=== PATIENT | female | born 1955 | race African-American/Black ===

== ENCOUNTER 2024-05-07 13:50 | Inpatient (IN) | payer MEDICARE, MEDICAID ==
[~2024-05-07] VITALS: Ht 180.3 cm; Wt 98.7 kg
[~2024-05-07 13:50] MED LIST: DILT60TA3 PO; HYDR50TA36 PO; LABE100T51 PO; SODI650T33 PO
[2024-05-07 15:26] LABS: BASOPHILS % (AUTO) 0.7 % (0.0-2.0); EOSINOPHILS % (AUTO) 1.7 % (1.0-6.0); HEMATOCRIT 28.3 % (36-46); HEMOGLOBIN 8.9 g/dL (12.0-16.0); LYMPHOCYTES % (AUTO) 36.8 % (22.0-44.0); MEAN CORPUSCULAR HEMOGLOBIN 29.1 pg (26.0-34.0); MEAN CORPUSCULAR HGB CONC 31.5 G/dL (31.0-37.0); MEAN CORPUSCULAR VOLUME 92 fL (80-100); MONOCYTES # (AUTO) 0.7 K/uL (0.1-1.0); MONOCYTES % (AUTO) 9.3 % (2.0-9.0); NEUTROPHILS # (AUTO) 4.1 K/uL (1.8-7.7); NEUTROPHILS % (AUTO) 51.5 % (40.0-70.0); PLATELET COUNT (AUTO) 240 K/uL (150-450); RED BLOOD CELL COUNT(AUTO) 3.06 MIL/uL (4.00-5.20); RED CELL DISTRIBUTION WIDTH 14.6 % (11.5-14.5)
[2024-05-07 15:35] LABS: CALCIUM, TOTAL 7.9 mg/dL (8.8-10.5); CREATININE 5.26 mg/dL (0.60-1.30); POTASSIUM 5.3 mmol/L (3.5-5.1)
[2024-05-07 15:43] LABS: TROPONIN I-HIGH SENSITIVITY 6 ng/L (<51)
[2024-05-07 16:14] LABS: APPEARANCE,URINE CLEAR (CLEAR); BILIRUBIN,URINE NEGATIVE (NEGATIVE); COLOR,URINE LIGHT YELLOW (YELLOW); GLUCOSE, URINE (UA) NEGATIVE (NEGATIVE); KETONES,URINE NEGATIVE (NEGATIVE); LEUKOCYTE ESTERASE ,URINE NEGATIVE (NEGATIVE); NITRATE,URINE NEGATIVE (NEGATIVE); OCCULT BLOOD,URINE NEGATIVE (NEGATIVE); PH,URINE 5.5 (5.0-8.0); PROTEIN,URINE 30-70 mg/dL (NEGATIVE); SPECIFIC GRAVITIY, URINE 1.013 (1.003-1.030); UROBILINOGEN,URINE <=1.0 mg/dL (<=1.0)
[2024-05-07] MEDS: ACETAMINOPHEN 325 MG TABLET PO ONE (17:25)
[2024-05-07] MEDS ORDERED: ACETAMINOPHEN 325 MG TABLET PO PRN (20:30)
[2024-05-07] MEDS ORDERED: ONDANSETRON HCL 4 MG/2 ML VIAL IVP PRN (20:30)
[2024-05-07] MEDS ORDERED: MAGNESIUM HYDROXIDE SUSPENSION 30 ML UDCUP PO PRN (20:30)
[2024-05-07] MEDS ORDERED: BISACODYL 10 MG RECTAL RECTAL SUPPOSITORY PR PRN (20:30)
[2024-05-07] MEDS: DILTIAZEM HCL 60 MG SR CAPSULE PO SCH (20:50)
[2024-05-07] MEDS: LABETALOL HCL 100 MG TABLET PO SCH (20:50)
[2024-05-07] MEDS: HydrALAZINE HCL 50 MG TABLET PO SCH (20:50)
[2024-05-07] MEDS: DOCUSATE SODIUM 100 MG CAPSULE PO SCH (20:53)
[2024-05-07] MEDS: SODIUM CHLORIDE 0.9% 1,000 ML IV ONE (20:53)
[2024-05-07] MEDS: SODIUM POLYSTYRENE SULFONATE 15 GM/60 ML SUSPENSION BOTTLE PO ONE (20:53)
[2024-05-07] MEDS: OxyCODONE HCL/ACETAMINOPHEN 10-325 MG TABLET PO ONE (20:55)
[2024-05-07 22:19] VITALS: BP 165/75; PULSE 93; RESP 18; TEMP 98.5; O2SAT 97
[2024-05-07] MEDS: ZOLPIDEM TARTRATE 5 MG TABLET PO PRN (23:27)
[2024-05-07] MEDS: HydrALAZINE HCL 20 MG/ML VIAL IVP PRN (23:28)
[2024-05-07] MEDS: HEPARIN SODIUM,PORCINE 5,000 UNITS/ML VIAL SQ SCH (23:28)
[2024-05-07] MEDS: OxyCODONE HCL/ACETAMINOPHEN 5-325 MG TABLET PO PRN (23:28)
[2024-05-08] VITALS (7 sets, daily range): BP systolic 142–173; BP diastolic 64–84; PULSE 100–109; RESP 15–18; TEMP 98–99; O2SAT 95–100
[2024-05-08] MEDS: SODIUM BICARBONATE 650 MG TABLET PO SCH ×2 (08:03→20:51)
[2024-05-08] MEDS: PANTOPRAZOLE SODIUM 40 MG DR TABLET PO SCH (08:03)
[2024-05-08 08:22] LABS: BASOPHILS % (AUTO) 0.6 % (0.0-2.0); EOSINOPHILS % (AUTO) 2.1 % (1.0-6.0); HEMATOCRIT 30.1 % (36-46); HEMOGLOBIN 9.6 g/dL (12.0-16.0); LYMPHOCYTES # (AUTO) 2.5 K/uL (1.0-4.8); LYMPHOCYTES % (AUTO) 31.7 % (22.0-44.0); MEAN CORPUSCULAR HEMOGLOBIN 29.4 pg (26.0-34.0); MEAN CORPUSCULAR HGB CONC 31.9 G/dL (31.0-37.0); MEAN CORPUSCULAR VOLUME 92 fL (80-100); MONOCYTES # (AUTO) 0.9 K/uL (0.1-1.0); NEUTROPHILS # (AUTO) 4.2 K/uL (1.8-7.7); NEUTROPHILS % (AUTO) 54.6 % (40.0-70.0); PLATELET COUNT (AUTO) 266 K/uL (150-450); RED BLOOD CELL COUNT(AUTO) 3.27 MIL/uL (4.00-5.20); RED CELL DISTRIBUTION WIDTH 14.8 % (11.5-14.5); WHITE BLOOD COUNT (AUTO) 7.7 K/uL (4.5-11.0)
[2024-05-08 08:43] LABS: CALCIUM, TOTAL 7.9 mg/dL (8.8-10.5); CREATININE 4.9 mg/dL (0.60-1.30); POTASSIUM 4.7 mmol/L (3.5-5.1)
[2024-05-08] MEDS: SODIUM CHLORIDE 0.9% 1,000 ML IV ONE (15:08)
[2024-05-09 05:05] VITALS: BP 158/62; PULSE 101; RESP 19; TEMP 98.7; O2SAT 96
[2024-05-09 07:18] LABS: BASOPHILS % (AUTO) 0.6 % (0.0-2.0); EOSINOPHILS % (AUTO) 0.8 % (1.0-6.0); HEMATOCRIT 29.9 % (36-46); HEMOGLOBIN 9.4 g/dL (12.0-16.0); LYMPHOCYTES % (AUTO) 39.2 % (22.0-44.0); MEAN CORPUSCULAR HGB CONC 31.5 G/dL (31.0-37.0); MEAN CORPUSCULAR VOLUME 95 fL (80-100); MONOCYTES # (AUTO) 0.8 K/uL (0.1-1.0); MONOCYTES % (AUTO) 8.1 % (2.0-9.0); NEUTROPHILS # (AUTO) 5.3 K/uL (1.8-7.7); NEUTROPHILS % (AUTO) 51.3 % (40.0-70.0); PLATELET COUNT (AUTO) 252 K/uL (150-450); RED BLOOD CELL COUNT(AUTO) 3.14 MIL/uL (4.00-5.20); RED CELL DISTRIBUTION WIDTH 15.6 % (11.5-14.5); WHITE BLOOD COUNT (AUTO) 10.3 K/uL (4.5-11.0)
[2024-05-09 07:30] LABS: CALCIUM, TOTAL 8.1 mg/dL (8.8-10.5); CREATININE 4.78 mg/dL (0.60-1.30); POTASSIUM 4.9 mmol/L (3.5-5.1)
[2024-05-09] MEDS: SODIUM ZIRCONIUM CYCLOSILICATE 5 GM POWDER PACKET PO SCH (08:03)
[2024-05-09 08:07] VITALS: BP 190/95; RESP 18; TEMP 98.2; O2SAT 97
[2024-05-09 11:03] VITALS: BP 163/69; PULSE 105; RESP 18; TEMP 98.6; O2SAT 97
[2024-05-09 16:30] VITALS: BP 158/84; PULSE 100; RESP 18; TEMP 98; O2SAT 98
[2024-05-09 20:27] VITALS: BP 155/69; PULSE 99; RESP 19; TEMP 98.9; O2SAT 95
[2024-05-09 23:52] VITALS: BP 161/62; PULSE 92; RESP 19; TEMP 98.3; O2SAT 96
[2024-05-10 04:35] VITALS: BP 160/68; PULSE 92; RESP 20; TEMP 98.2; O2SAT 98
[2024-05-10 07:20] LABS: BASOPHILS % (AUTO) 0.7 % (0.0-2.0); EOSINOPHILS % (AUTO) 1.9 % (1.0-6.0); HEMATOCRIT 30.7 % (36-46); HEMOGLOBIN 9.8 g/dL (12.0-16.0); LYMPHOCYTES # (AUTO) 3.5 K/uL (1.0-4.8); LYMPHOCYTES % (AUTO) 32.9 % (22.0-44.0); MEAN CORPUSCULAR HEMOGLOBIN 29.9 pg (26.0-34.0); MEAN CORPUSCULAR VOLUME 94 fL (80-100); MONOCYTES # (AUTO) 1.2 K/uL (0.1-1.0); MONOCYTES % (AUTO) 11.3 % (2.0-9.0); NEUTROPHILS # (AUTO) 5.7 K/uL (1.8-7.7); NEUTROPHILS % (AUTO) 53.2 % (40.0-70.0); PLATELET COUNT (AUTO) 267 K/uL (150-450); RED BLOOD CELL COUNT(AUTO) 3.28 MIL/uL (4.00-5.20); RED CELL DISTRIBUTION WIDTH 14.9 % (11.5-14.5); WHITE BLOOD COUNT (AUTO) 10.7 K/uL (4.5-11.0)
[2024-05-10 07:29] LABS: CALCIUM, TOTAL 8.3 mg/dL (8.8-10.5); CREATININE 4.55 mg/dL (0.60-1.30); POTASSIUM 4.9 mmol/L (3.5-5.1)
[2024-05-10 08:00] VITALS: BP 153/68; PULSE 92; RESP 16; TEMP 98.3; O2SAT 100
[2024-05-10 11:06] VITALS: BP 149/69; PULSE 89; RESP 18; TEMP 98; O2SAT 98
[2024-05-10 14:54] VITALS: BP 144/64; PULSE 84; RESP 18; TEMP 98; O2SAT 94
[2024-05-10 20:39] VITALS: BP 153/78; PULSE 102; RESP 19; TEMP 98; O2SAT 97
[2024-05-10] MEDS: QUEtiapine FUMARATE 25 MG TABLET PO SCH (20:47)
[2024-05-11 05:40] VITALS: BP 130/70; PULSE 89; RESP 18; TEMP 98.3; O2SAT 98
[2024-05-11 07:47] VITALS: BP 153/80; PULSE 94; RESP 18; TEMP 98.3; O2SAT 95
[2024-05-11 10:06] VITALS: BP 147/73; PULSE 95; RESP 19; TEMP 98; O2SAT 95
[2024-05-11 15:43] VITALS: BP 146/73; PULSE 95; RESP 18; TEMP 98.5; O2SAT 95
[2024-05-11 19:41] VITALS: BP 125/59; PULSE 96; RESP 18; TEMP 98.6; O2SAT 98
[2024-05-11] MEDS: TraZODone HCL 100 MG TABLET PO SCH (21:49)
[2024-05-11] MEDS: HYDROmorphone HCL 2 MG TABLET PO ONE (21:49)
[2024-05-12 04:28] VITALS: BP 138/64; PULSE 93; RESP 20; TEMP 98.2; O2SAT 97
[2024-05-12 07:13] LABS: BASOPHILS % (AUTO) 1.2 % (0.0-2.0); EOSINOPHILS % (AUTO) 2.5 % (1.0-6.0); HEMATOCRIT 27.8 % (36-46); HEMOGLOBIN 8.8 g/dL (12.0-16.0); LYMPHOCYTES # (AUTO) 3.6 K/uL (1.0-4.8); LYMPHOCYTES % (AUTO) 46.4 % (22.0-44.0); MEAN CORPUSCULAR HEMOGLOBIN 29.5 pg (26.0-34.0); MEAN CORPUSCULAR HGB CONC 31.8 G/dL (31.0-37.0); MEAN CORPUSCULAR VOLUME 93 fL (80-100); MONOCYTES # (AUTO) 0.8 K/uL (0.1-1.0); MONOCYTES % (AUTO) 10.1 % (2.0-9.0); NEUTROPHILS # (AUTO) 3.1 K/uL (1.8-7.7); NEUTROPHILS % (AUTO) 39.8 % (40.0-70.0); PLATELET COUNT (AUTO) 243 K/uL (150-450); RED BLOOD CELL COUNT(AUTO) 2.99 MIL/uL (4.00-5.20); WHITE BLOOD COUNT (AUTO) 7.9 K/uL (4.5-11.0)
[2024-05-12 07:33] LABS: CREATININE 3.86 mg/dL (0.60-1.30)
[2024-05-12 07:34] LABS: CALCIUM, TOTAL 7.8 mg/dL (8.8-10.5); MAGNESIUM 1.7 mg/dL (1.80-2.40); PHOSPHORUS 3.7 mg/dL (2.5-4.9)
[2024-05-12 07:37] LABS: POTASSIUM 4.6 mmol/L (3.5-5.1)
[2024-05-12 08:31] VITALS: BP 157/63; PULSE 67; RESP 18; TEMP 98.1; O2SAT 100
[2024-05-12] MEDS: MAGNESIUM OXIDE 400 MG TABLET PO SCH (10:32)
[2024-05-12] MEDS: PROPRANOLOL HCL 10 MG TABLET PO SCH (10:32)
[2024-05-12 13:21] VITALS: BP 144/70; PULSE 82; RESP 19; TEMP 98.2; O2SAT 98
[2024-05-12] MEDS ORDERED: SODIUM BICARBONATE 650 MG TABLET PO SCH (21:00)
== END 2024-05-12 16:00 | DRG 425 ==
LOC: EMS 13:54 → EDH 22:09 → 5N 22:10 → 4E 05-11 06:06
PROVIDERS: ADMIT Internal Medicine; ATTEND Internal Medicine
DX: E87.5 Hyperkalemia (principal); N17.0 Acute kidney failure with tubular necrosis; E87.20 Acidosis, unspecified; E11.22 Type 2 diabetes mellitus with diabetic chronic kidney disease; E66.9 Obesity, unspecified; N18.5 Chronic kidney disease, stage 5; B19.20 Unspecified viral hepatitis C without hepatic coma; F20.9 Schizophrenia, unspecified; G47.00 Insomnia, unspecified; E11.40 Type 2 diabetes mellitus with diabetic neuropathy, unspecified; E78.00 Pure hypercholesterolemia, unspecified; E83.42 Hypomagnesemia; G25.0 Essential tremor; E87.6 Hypokalemia; F32.9 Major depressive disorder, single episode, unspecified; G89.4 Chronic pain syndrome; Z88.0 Allergy status to penicillin; Z88.5 Allergy status to narcotic agent; Z79.899 Other long term (current) drug therapy; Z91.041 Radiographic dye allergy status; Z68.30 Body mass index [BMI] 30.0-30.9, adult; I12.0 Hypertensive chronic kidney disease with stage 5 chronic kidney disease or end stage renal disease
CPT/HCPCS: 76770; 80048; 81003; 83735; 84100; 84484; 85025; 93970; 97163; 97166; 97530; 97535; 99285; G0378; J0360; J1644; J7030

== ENCOUNTER 2025-06-06 16:32 | Inpatient (IN) | payer MEDICARE, MEDICAID ==
[~2025-06-06] VITALS: Ht 180.3 cm; Wt 66.8 kg
[~2025-06-06 16:32] MED LIST changes: +CALC0.253 PO; +CLOZ100T61 PO; -DILT60TA3 PO; +HYDR100T15 PO; -HYDR50TA36 PO; +NALO4SPR NASAL; +NIFE-78 PO; +OXYC1TAB6 PO; +PREDAOS OU; +TAMS0.4C94 PO; +TIZA-211 PO; +TRAZ-252 PO
[2025-06-06 18:59] LABS: PLATELET COUNT (AUTO) 169 K/uL (150-450); RED BLOOD CELL COUNT(AUTO) 3.24 MIL/uL (4.00-5.20); RED CELL DISTRIBUTION WIDTH 15.4 % (11.5-14.5); WHITE BLOOD COUNT (AUTO) 6.3 K/uL (4.5-11.0)
[2025-06-06 19:15] LABS: CALCIUM, TOTAL 8.2 mg/dL (8.8-10.5); CREATININE 2.69 mg/dL (0.60-1.30); GLOMERULAR FILTR. RATE CALC 21.0 mL/min (>60); GLUCOSE,RANDOM 94.0 mg/dL (70-110); SODIUM SERUM 139.0 mmol/L (136-145); UREA NITROGEN, BLOOD 44.0 mg/dL (7-18)
[2025-06-06] MEDS: CARBOXYMETHYLCELLULOSE SODIUM 0.4 ML OPHTHALMIC SOLUTION [PF] OU ONE (19:30)
[2025-06-06 20:06] LABS: COVID AG,FIA SOURCE NASAL SWAB
[2025-06-06 20:24] LABS: SARS-COV2 (COVID) ANTIGEN,FIA Negative (Negative)
[2025-06-06] MEDS ORDERED: TRAZ-257 PO (20:51)
[2025-06-06] MEDS: PROPARACAINE HCL 0.5% 15 ML OPHTHALMIC SOLUTION OD ONE (22:05)
[2025-06-07] MEDS ORDERED: ONDANSETRON HCL 4 MG/2 ML VIAL IVP PRN (03:30)
[2025-06-07] MEDS ORDERED: MISC MED-CONVERTED FROM AMBULATORY (Naloxone HCl (Narcan) 1 SPRAY) NASAL PRN (03:30)
[2025-06-07] MEDS ORDERED: 0.9% SODIUM CHLORIDE 10 ML SYRINGE IVP PRN (03:30)
[2025-06-07] MEDS: OxyCODONE HCL/ACETAMINOPHEN 5-325 MG TABLET PO PRN ×2 (05:10→19:00)
[2025-06-07 08:16] VITALS: BP 120/55; PULSE 70; RESP 20; TEMP 98.2; O2SAT 97
[2025-06-07] MEDS: TAMSULOSIN HCL 0.4 MG CAPSULE PO SCH (08:29)
[2025-06-07] MEDS: SODIUM BICARBONATE 650 MG TABLET PO SCH (08:29)
[2025-06-07] MEDS: LABETALOL HCL 100 MG TABLET PO SCH (08:30)
[2025-06-07] MEDS: ENOXAPARIN SODIUM 40 MG/0.4 ML PF SYRINGE SQ SCH (08:30)
[2025-06-07] MEDS: PrednisoLONE ACETATE 1% 5 ML OPHTHALMIC SUSPENSION OU SCH (09:00)
[2025-06-07] MEDS ORDERED: BISACODYL 10 MG RECTAL RECTAL SUPPOSITORY PR PRN (10:45)
[2025-06-07] MEDS: LACTULOSE 20 GM/30 ML SOLUTION UDCUP PO ONE (12:25)
[2025-06-07 12:27] LABS: CALCIUM, TOTAL 7.7 mg/dL (8.8-10.5); CREATININE 3.16 mg/dL (0.60-1.30); GLOMERULAR FILTR. RATE CALC 18.0 mL/min (>60); GLUCOSE,RANDOM 86.0 mg/dL (70-110); SODIUM SERUM 140.0 mmol/L (136-145); UREA NITROGEN, BLOOD 53.0 mg/dL (7-18)
[2025-06-07 16:17] VITALS: BP 139/56; PULSE 78; RESP 20; TEMP 98.6; O2SAT 98
[2025-06-07 20:21] VITALS: BP 151/61; PULSE 85; RESP 18; TEMP 99; O2SAT 99
[2025-06-08 03:31] VITALS: BP 153/61; PULSE 76; RESP 18; TEMP 98.4; O2SAT 100
[2025-06-08 04:24] LABS: ALCOHOL, URINE DRUG SCREEN NEGATIVE (NEGATIVE); AMPHET/METH SCREEN,URINE NEGATIVE (NEGATIVE); BARBITURATE SCREEN, URINE NEGATIVE (NEGATIVE); CANNABINOID SCREEN,URINE NEGATIVE (NEGATIVE); COCAINE SCREEN,URINE NEGATIVE (NEGATIVE); METHADONE SCREEN, URINE NEGATIVE (NEGATIVE)
[2025-06-08 04:25] LABS: APPEARANCE,URINE HAZY (CLEAR); GLUCOSE, URINE (UA) NEGATIVE (NEGATIVE); LEUKOCYTE ESTERASE ,URINE LARGE (NEGATIVE); NITRATE,URINE NEGATIVE (NEGATIVE); OCCULT BLOOD,URINE NEGATIVE (NEGATIVE); PH,URINE DRUG SCREEN 6.5 (5.0-8.0); SPECIFIC GRAVITIY, URINE 1.012 (1.003-1.030)
[2025-06-08 04:38] LABS: SQUAMOUS EPITHELIAL CELL,UR Rare /LPF (None Seen)
[2025-06-08] MEDS: POLYETHYLENE GLYCOL 3350 17 GM PACKET PO SCH (10:11)
[2025-06-08 15:53] LABS: PLATELET COUNT (AUTO) 153 K/uL (150-450); RED BLOOD CELL COUNT(AUTO) 3.30 MIL/uL (4.00-5.20); RED CELL DISTRIBUTION WIDTH 15.9 % (11.5-14.5); WHITE BLOOD COUNT (AUTO) 6.7 K/uL (4.5-11.0)
[2025-06-08 17:27] VITALS: BP 156/61; PULSE 83; RESP 18; TEMP 98.6; O2SAT 95
[2025-06-08] MEDS: FOLIC ACID/VIT B COMPLEX AND C TABLET PO SCH (17:46)
[2025-06-08 21:09] VITALS: BP 149/67; PULSE 88; RESP 18; TEMP 98.1; O2SAT 96
[2025-06-09] VITALS (12 sets, daily range): BP systolic 107–177; BP diastolic 43–73; PULSE 67–97; RESP 18–20; TEMP 98–100.2; O2SAT 97–100
[2025-06-09] MEDS: EPOETIN ALFA 10,000 UNITS/ML 2 ML VIAL SQ SCH (08:25)
[2025-06-09] MEDS ORDERED: SODIUM CHLORIDE 0.9% 2,000 ML ONE (11:21)
[2025-06-09] MEDS: SULFAMETHOX/TRIMETH DS 800-160 MG/TABLET PO SCH (12:45)
[2025-06-09] MEDS: MAGNESIUM SULFATE 0.5 GM in DEXTROSE 5%-WATER 50 ML IV ONE (19:24)
[2025-06-09 22:20] LABS: C.DIFF GDH ANTIGEN, Stool Negative (Negative); C.DIFF TOXINS A&B, Stool Negative (Negative)
[2025-06-09] MEDS: LOPERAMIDE HCL 2 MG CAPSULE PO SCH (23:28)
[2025-06-10 04:22] VITALS: BP 119/60; PULSE 83; RESP 19; TEMP 98.9; O2SAT 98
[2025-06-10] MEDS: OxyCODONE HCL/ACETAMINOPHEN 5-325 MG TABLET PO PRN (04:41)
[2025-06-10 08:53] VITALS: BP 106/54; PULSE 84; RESP 18; TEMP 99.9; O2SAT 98
[2025-06-10] MEDS ORDERED: SULFAMETHOX/TRIMETH DS 800-160 MG/TABLET PO SCH (09:00)
[2025-06-11] VITALS (14 sets, daily range): BP systolic 96–166; BP diastolic 43–84; PULSE 74–95; RESP 18–20; TEMP 98.1–99.5; O2SAT 95–100
[2025-06-11] MEDS ORDERED: SODIUM CHLORIDE 0.9% 2,000 ML ONE (05:55)
[2025-06-12 06:43] VITALS: BP 123/56; PULSE 85; RESP 18; TEMP 98.5; O2SAT 100
[2025-06-12 07:40] VITALS: BP 136/59; PULSE 86; RESP 18; TEMP 98.6; O2SAT 96
[2025-06-12] MEDS: OxyCODONE HCL/ACETAMINOPHEN 5-325 MG TABLET PO PRN (09:24)
[2025-06-12 15:30] VITALS: BP 122/54; PULSE 86; RESP 18; TEMP 99; O2SAT 95
[2025-06-12 19:19] VITALS: BP 107/44; PULSE 95; RESP 18; TEMP 100.2; O2SAT 95
[2025-06-13] VITALS (13 sets, daily range): BP systolic 107–145; BP diastolic 51–75; PULSE 74–97; RESP 18–20; TEMP 98.7–100.6; O2SAT 94–99
[2025-06-13] MEDS ORDERED: SODIUM CHLORIDE 0.9% 2,000 ML ONE (14:05)
[2025-06-14 05:09] VITALS: BP 100/67; PULSE 76; RESP 19; TEMP 98.1; O2SAT 97
[2025-06-14 08:00] VITALS: BP 121/54; PULSE 79; RESP 18; TEMP 98.8; O2SAT 99
[2025-06-14 14:25] LABS: C.DIFF GDH ANTIGEN, Stool Negative (Negative); C.DIFF TOXINS A&B, Stool Negative (Negative)
[2025-06-14 14:36] LABS: PLATELET COUNT (AUTO) 157 K/uL (150-450); RED BLOOD CELL COUNT(AUTO) 3.25 MIL/uL (4.00-5.20); RED CELL DISTRIBUTION WIDTH 14.7 % (11.5-14.5); WHITE BLOOD COUNT (AUTO) 7.0 K/uL (4.5-11.0)
[2025-06-14 14:52] LABS: CALCIUM, TOTAL 8.3 mg/dL (8.8-10.5); CREATININE 5.27 mg/dL (0.60-1.30); GLOMERULAR FILTR. RATE CALC 10.0 mL/min (>60); GLUCOSE,RANDOM 166.0 mg/dL (70-110); SODIUM SERUM 139.0 mmol/L (136-145); UREA NITROGEN, BLOOD 66.0 mg/dL (7-18)
[2025-06-14 14:57] LABS: ASPARTATE AMINOTRANSFERASE 63.0 U/L (15-37); TOTAL PROTEIN, SERUM 7.6 g/dL (6.4-8.2)
[2025-06-14 16:00] VITALS: BP 138/62; PULSE 81; RESP 17; TEMP 98.8; O2SAT 98
[2025-06-14 20:00] VITALS: BP 112/52; PULSE 84; RESP 18; TEMP 98.4; O2SAT 96
[2025-06-14] MEDS: LOPERAMIDE HCL 2 MG CAPSULE PO PRN (21:37)
[2025-06-15 10:00] VITALS: BP 132/52; PULSE 87; RESP 18; O2SAT 99
[2025-06-15 14:36] LABS: PLATELET COUNT (AUTO) 168 K/uL (150-450); RED BLOOD CELL COUNT(AUTO) 3.15 MIL/uL (4.00-5.20); RED CELL DISTRIBUTION WIDTH 14.8 % (11.5-14.5); WHITE BLOOD COUNT (AUTO) 7.0 K/uL (4.5-11.0)
[2025-06-15 17:24] VITALS: BP 113/48; PULSE 79; RESP 17; O2SAT 98
[2025-06-16] VITALS (12 sets, daily range): BP systolic 114–144; BP diastolic 51–72; PULSE 91–101; RESP 18; TEMP 98.1–98.2; O2SAT 96–99
[2025-06-16] MEDS ORDERED: SODIUM CHLORIDE 0.9% 2,000 ML ONE (07:53)
[2025-06-17 04:00] VITALS: BP 117/55; PULSE 79; RESP 18; TEMP 98.4; O2SAT 95
[2025-06-17 15:53] VITALS: BP 143/59; PULSE 93; RESP 18; TEMP 98.1; O2SAT 95
== END 2025-06-17 18:14 | disposition left against medical advice (07) | DRG 637 ==
LOC: EMS 16:32 → EDH 06-07 02:32 → 6S 06-07 04:47
PROVIDERS: ADMIT Family Medicine; ATTEND Family Medicine
PROC: 5A1D70Z Performance of Urinary Filtration, Intermittent, Less than 6 Hours Per Day (ICD-10-PCS; principal; 2025-06-09)
PROC: 5A1D70Z Performance of Urinary Filtration, Intermittent, Less than 6 Hours Per Day (ICD-10-PCS; 2025-06-11)
PROC: 5A1D70Z Performance of Urinary Filtration, Intermittent, Less than 6 Hours Per Day (ICD-10-PCS; 2025-06-13)
PROC: 5A1D70Z Performance of Urinary Filtration, Intermittent, Less than 6 Hours Per Day (ICD-10-PCS; 2025-06-16)
DX: E11.622 Type 2 diabetes mellitus with other skin ulcer (principal); N18.6 End stage renal disease; L89.152 Pressure ulcer of sacral region, stage 2; I12.0 Hypertensive chronic kidney disease with stage 5 chronic kidney disease or end stage renal disease; N13.8 Other obstructive and reflux uropathy; D63.1 Anemia in chronic kidney disease; N17.9 Acute kidney failure, unspecified; N39.0 Urinary tract infection, site not specified; Z99.2 Dependence on renal dialysis; F32.9 Major depressive disorder, single episode, unspecified; F20.9 Schizophrenia, unspecified; E11.22 Type 2 diabetes mellitus with diabetic chronic kidney disease; Z16.12 Extended spectrum beta lactamase (ESBL) resistance; H40.9 Unspecified glaucoma; D47.2 Monoclonal gammopathy; H53.8 Other visual disturbances; H54.7 Unspecified visual loss; Z20.822 Contact with and (suspected) exposure to COVID-19; E78.00 Pure hypercholesterolemia, unspecified; G89.29 Other chronic pain; Z76.5 Malingerer [conscious simulation]; Z88.0 Allergy status to penicillin; Z88.5 Allergy status to narcotic agent; Z79.899 Other long term (current) drug therapy; E11.40 Type 2 diabetes mellitus with diabetic neuropathy, unspecified
CPT/HCPCS: 70450; 74018; 80048; 80053; 80307; 81001; 83735; 85025; 87045; 87077; 87081; 87086; 87186; 87324; 87340; 87449; 89055; 90935; 93005; 96372; 99285; G0480; J0885; J1650; J3475; J7030; J7060; 36415-L1; 36415-TC